=== PATIENT | female | born 1930 | race Caucasian/White ===

== ENCOUNTER 2018-04-10 11:39 | Observation (INO) | payer MEDICARE, OTHER ==
[~2018-04-10] VITALS: Ht 167.6 cm; Wt 99.0 kg
[2018-04-10] MEDS ORDERED: ATENOLOL50 MG PO (12:17)
[2018-04-10] MEDS ORDERED: DONEPEZIL10 MG PO (12:18)
[2018-04-10] MEDS ORDERED: FUROSEMIDE20 MG PO (12:19)
[2018-04-10] MEDS ORDERED: KLOR-CON 1010 MEQ PO (12:19)
[2018-04-10] MEDS ORDERED: LEVOTHYROXIN125 MC1 PO (12:20)
[2018-04-10] MEDS ORDERED: LORATADINE10 M4 PO (12:21)
[2018-04-10] MEDS ORDERED: CRESTOR5 MG PO (12:21)
[2018-04-10] MEDS ORDERED: LORAZEPAM0.5 MG PO (12:22)
[2018-04-10] MEDS ORDERED: PROAIR HFA IN (12:23)
[2018-04-10] MEDS ORDERED: FLONASE AL50 MCG/ACT NAB (12:23)
[2018-04-10] MEDS ORDERED: ALBUTEROL SUL0.083 % IN (12:24)
[2018-04-10] MEDS ORDERED: DULERA1 AER IN (12:25)
[2018-04-10] MEDS ORDERED: ADLT ASA LOW81 MG PO (12:25)
[2018-04-10] MEDS ORDERED: HYDROXYZ HCL10 MG PO (12:26)
[2018-04-10] MEDS ORDERED: TYLENOL325 MG PO (12:27)
[2018-04-10] MEDS ORDERED: MULTI VIT PO (12:28)
[2018-04-10 15:45] VITALS: BP 168/71
[2018-04-10 16:50] LABS: TSH, 3RD GENERATION 3.13 uIU/mL (0.47 - 4.68)
[2018-04-10 20:00] VITALS: BP 138/64
[2018-04-11 04:24] VITALS: BP 116/62
[2018-04-11 05:06] LABS: HEMATOCRIT 34.4 % (37.0-47.0); HEMOGLOBIN 10.9 g/dl (12.0-16.0); IMMATURE GRANULOCYTES 0.3 % (0.0-5.0); MEAN CELL VOLUME 97.7 fL CALC (80.0-100.0); MEAN CORPUSCULAR HGB CONC 31.7 g/L CALC (32.0-36.0); NEUT# 4.31 thou/uL (2.00-7.15); RED BLOOD COUNT 3.52 mill/uL (4.20-5.60); RED CELL DISTRI WIDTH 14.2 % (11.5-15.5)
[2018-04-11 05:28] LABS: ALBUMIN 3.4 g/dL (3.2-5.0); BILIRUBIN, TOTAL 0.4 mg/dL (0.0-1.4); CREATININE 1.1 mg/dL (0.5-1.0); POTASSIUM 4.7 mmol/l (3.5-5.1)
[2018-04-11 15:48] VITALS: BP 128/62
[2018-04-11] MEDS ORDERED: LORTAB 5/3255 MG PO (18:06)
== END 2018-04-11 18:44 ==
LOC: ED 11:39 → ED-I 14:35 → MS2 15:14 → ED 15:14 → MS2 15:14
PROVIDERS: ADMIT Internal Medicine Geriatric Medicine; ATTEND Internal Medicine Geriatric Medicine
DX: D49.2 Neoplasm of unspecified behavior of bone, soft tissue, and skin (principal); I11.0 Hypertensive heart disease with heart failure; I50.9 Heart failure, unspecified; J44.9 Chronic obstructive pulmonary disease, unspecified; I25.10 Atherosclerotic heart disease of native coronary artery without angina pectoris; K21.9 Gastro-esophageal reflux disease without esophagitis; Z99.81 Dependence on supplemental oxygen; F41.1 Generalized anxiety disorder; F32.9 Major depressive disorder, single episode, unspecified; E03.9 Hypothyroidism, unspecified
CPT/HCPCS: A9503; Q9967

== ENCOUNTER 2018-04-15 22:31 | Emergency (ER) | payer MEDICARE, OTHER ==
[~2018-04-15] VITALS: Ht 167.6 cm; Wt 85.0 kg
[~2018-04-15 22:31] MED LIST: ADLT ASA LOW81 MG PO; ALBUTEROL SUL0.083 % IN; ATENOLOL50 MG PO; CRESTOR5 MG PO; DONEPEZIL10 MG PO; DULERA1 AER IN; FLONASE AL50 MCG/ACT NAB; FUROSEMIDE20 MG PO; HYDROXYZ HCL10 MG PO; KLOR-CON 1010 MEQ PO; LEVOTHYROXIN125 MC1 PO; LORATADINE10 M4 PO; LORAZEPAM0.5 MG PO; LORTAB 5/3255 MG PO; MULTI VIT PO; PROAIR HFA IN; TYLENOL325 MG PO
[2018-04-15 23:15] VITALS: BP 142/64
== END 2018-04-15 23:15 | disposition home or self-care (01) ==
LOC: ED 22:31
DX: M25.551 Pain in right hip (principal); M79.10 Myalgia, unspecified site; M62.830 Muscle spasm of back

== ENCOUNTER 2018-05-02 09:12 | Emergency (ER) | payer MEDICARE, OTHER ==
[~2018-05-02] VITALS: Ht 167.6 cm; Wt 85.0 kg
[2018-05-02 11:10] VITALS: BP 133/63
== END 2018-05-02 11:20 | disposition home or self-care (01) ==
LOC: ED 09:12
DX: M25.551 Pain in right hip (principal); M54.5 Low back pain; S70.01XA Contusion of right hip, initial encounter; W18.30XA Fall on same level, unspecified, initial encounter; Y92.009 Unspecified place in unspecified non-institutional (private) residence as the place of occurrence of the external cause

== ENCOUNTER 2018-05-07 13:21 | Inpatient (IN) | payer MEDICARE, OTHER ==
[~2018-05-07] VITALS: Ht 152.4 cm; Wt 86.0 kg
[2018-05-07 14:18] VITALS: BP 134/68
[2018-05-07] MEDS ORDERED: DURAGESIC25 MCG/H1 TD (14:29)
[2018-05-07 14:50] LABS: HEMATOCRIT 35.5 % (37.0-47.0); HEMOGLOBIN 11.2 g/dl (12.0-16.0); IMMATURE GRANULOCYTES 0.5 % (0.0-5.0); MEAN CELL VOLUME 95.9 fL CALC (80.0-100.0); MEAN CORPUSCULAR HGB 30.3 pG CALC (26.0-32.0); MEAN CORPUSCULAR HGB CONC 31.5 g/L CALC (32.0-36.0); NEUT# 6.54 thou/uL (2.00-7.15); RED BLOOD COUNT 3.7 mill/uL (4.20-5.60); RED CELL DISTRI WIDTH 13.5 % (11.5-15.5)
[2018-05-07 15:02] LABS: CREATININE 1.4 mg/dL (0.5-1.0); POTASSIUM 4.2 mmol/l (3.5-5.1)
[2018-05-07 16:14] VITALS: BP 129/57
[2018-05-07 19:00] VITALS: BP 110/50
[2018-05-08 00:05] VITALS: BP 120/62
[2018-05-08 04:15] VITALS: BP 115/58
[2018-05-08 05:36] LABS: HEMATOCRIT 33.5 % (37.0-47.0); HEMOGLOBIN 10.7 g/dl (12.0-16.0); IMMATURE GRANULOCYTES 0.3 % (0.0-5.0); MEAN CELL VOLUME 95.7 fL CALC (80.0-100.0); MEAN CORPUSCULAR HGB 30.6 pG CALC (26.0-32.0); MEAN CORPUSCULAR HGB CONC 31.9 g/L CALC (32.0-36.0); NEUT# 5.73 thou/uL (2.00-7.15); RED BLOOD COUNT 3.5 mill/uL (4.20-5.60); RED CELL DISTRI WIDTH 13.3 % (11.5-15.5)
[2018-05-08 06:32] LABS: URINE BILIRUBIN - DIPSTICK NEGATIVE (NEGATIVE); URINE BLOOD DIPSTICK NEGATIVE (NEGATIVE); URINE COLOR YELLOW; URINE GLUCOSE - DIPSTICK NEGATIVE (NEGATIVE); URINE KETONE NEGATIVE (NEGATIVE); URINE LEUK ESTERASE NEGATIVE (Negative); URINE NITRITE - DIPSTICK NEGATIVE (Negative); URINE PH 6.5 (4.5-8.0); URINE PROTEIN - DIPSTICK NEGATIVE (NEG-TRACE); URINE SPECIFIC GRAVITY 1.015; URINE UROBILINOGEN - DIPSTICK 0.2 E.U./dL (0.2)
[2018-05-08 06:34] LABS: URINE CLARITY CLEAR
[2018-05-08 06:41] LABS: ALBUMIN 3.6 g/dL (3.2-5.0); BILIRUBIN, TOTAL 0.3 mg/dL (0.0-1.4); CREATININE 1.2 mg/dL (0.5-1.0); POTASSIUM 4.7 mmol/l (3.5-5.1); TOTAL PROTEIN 6.2 g/dL (6.3-8.2)
[2018-05-08 08:38] VITALS: BP 138/61
[2018-05-08 15:46] VITALS: BP 129/57
[2018-05-08 19:00] VITALS: BP 136/71
[2018-05-09 04:00] VITALS: BP 156/73
[2018-05-09 05:59] LABS: HEMATOCRIT 35.2 % (37.0-47.0); HEMOGLOBIN 11.4 g/dl (12.0-16.0); IMMATURE GRANULOCYTES 0.6 % (0.0-5.0); MEAN CELL VOLUME 94.9 fL CALC (80.0-100.0); MEAN CORPUSCULAR HGB 30.7 pG CALC (26.0-32.0); MEAN CORPUSCULAR HGB CONC 32.4 g/L CALC (32.0-36.0); NEUT# 11.1 thou/uL (2.00-7.15); RED BLOOD COUNT 3.71 mill/uL (4.20-5.60); RED CELL DISTRI WIDTH 13.2 % (11.5-15.5)
[2018-05-09 06:08] LABS: ALBUMIN 3.6 g/dL (3.2-5.0); ALKALINE PHOSPHATASE 60 u/l (38-126); ANION GAP 16 (6-22 (CALC)); BILIRUBIN, TOTAL 0.3 mg/dL (0.0-1.4); BUN 26 mg/dL (8-23); BUN/CREATININE RATIO 26 (12-20 (CALC)); CARBON DIOXIDE 25 mmol/l (22-30); CHLORIDE 100 mmol/l (95-108); GFR 52 ML/MIN (>=60 (CALC)); GFR FOR AFR.AMER. > 60 ML/MIN (>=60 (CALC)); POTASSIUM 4.7 mmol/l (3.5-5.1); SGOT/AST 22 u/l (9-36); SODIUM 136 mmol/l (137-146); TOTAL PROTEIN 6.3 g/dL (6.3-8.2)
[2018-05-09 07:46] VITALS: BP 127/73
[2018-05-09 15:27] VITALS: BP 137/90
[2018-05-09 15:28] VITALS: BP 132/67
[2018-05-09 18:51] VITALS: BP 134/71
[2018-05-10 04:23] VITALS: BP 134/67
[2018-05-10 05:17] LABS: HEMATOCRIT 33.1 % (37.0-47.0); HEMOGLOBIN 10.7 g/dl (12.0-16.0); IMMATURE GRANULOCYTES 0.8 % (0.0-5.0); MEAN CORPUSCULAR HGB 30.1 pG CALC (26.0-32.0); MEAN CORPUSCULAR HGB CONC 32.3 g/L CALC (32.0-36.0); NEUT# 10.05 thou/uL (2.00-7.15); RED BLOOD COUNT 3.56 mill/uL (4.20-5.60); RED CELL DISTRI WIDTH 13.3 % (11.5-15.5)
[2018-05-10 05:41] LABS: ALBUMIN 3.2 g/dL (3.2-5.0); ALKALINE PHOSPHATASE 69 u/l (38-126); ANION GAP 14 (6-22 (CALC)); BILIRUBIN, TOTAL 0.2 mg/dL (0.0-1.4); BUN 30 mg/dL (8-23); BUN/CREATININE RATIO 33 (12-20 (CALC)); CARBON DIOXIDE 25 mmol/l (22-30); CHLORIDE 102 mmol/l (95-108); CREATININE 0.9 mg/dL (0.5-1.0); GFR 59 ML/MIN (>=60 (CALC)); GFR FOR AFR.AMER. > 60 ML/MIN (>=60 (CALC)); POTASSIUM 4.1 mmol/l (3.5-5.1); SGOT/AST 17 u/l (9-36); SODIUM 137 mmol/l (137-146); TOTAL PROTEIN 5.7 g/dL (6.3-8.2)
[2018-05-10 07:58] VITALS: BP 150/88
[2018-05-10 16:00] VITALS: BP 159/72
[2018-05-10 19:37] VITALS: BP 153/81
[2018-05-11 06:06] VITALS: BP 141/79
[2018-05-11 07:57] VITALS: BP 149/70
[2018-05-11 09:45] LABS: HEMATOCRIT 35.3 % (37.0-47.0); HEMOGLOBIN 11.3 g/dl (12.0-16.0); IMMATURE GRANULOCYTES 0.9 % (0.0-5.0); MEAN CELL VOLUME 95.4 fL CALC (80.0-100.0); MEAN CORPUSCULAR HGB 30.5 pG CALC (26.0-32.0); NEUT# 12.15 thou/uL (2.00-7.15); RED BLOOD COUNT 3.7 mill/uL (4.20-5.60); RED CELL DISTRI WIDTH 13.7 % (11.5-15.5)
[2018-05-11 09:51] LABS: ANION GAP 13 (6-22 (CALC)); BUN 26 mg/dL (8-23); BUN/CREATININE RATIO 30 (12-20 (CALC)); CARBON DIOXIDE 27 mmol/l (22-30); CHLORIDE 101 mmol/l (95-108); CREATININE 0.9 mg/dL (0.5-1.0); GFR 59 ML/MIN (>=60 (CALC)); GFR FOR AFR.AMER. > 60 ML/MIN (>=60 (CALC)); POTASSIUM 3.4 mmol/l (3.5-5.1); SODIUM 138 mmol/l (137-146)
[2018-05-11 12:00] VITALS: BP 150/78
[2018-05-11 16:00] VITALS: BP 158/87
[2018-05-11 19:39] VITALS: BP 132/63
[2018-05-12 04:00] VITALS: BP 127/70
[2018-05-12 05:22] LABS: ANION GAP 12 (6-22 (CALC)); BUN 23 mg/dL (8-23); BUN/CREATININE RATIO 23 (12-20 (CALC)); CARBON DIOXIDE 27 mmol/l (22-30); CHLORIDE 102 mmol/l (95-108); GFR 52 ML/MIN (>=60 (CALC)); GFR FOR AFR.AMER. > 60 ML/MIN (>=60 (CALC)); POTASSIUM 3.8 mmol/l (3.5-5.1); SODIUM 137 mmol/l (137-146)
[2018-05-12 08:09] VITALS: BP 118/66
[2018-05-12 15:44] VITALS: BP 122/74
[2018-05-12 19:00] VITALS: BP 150/88
[2018-05-13 04:10] VITALS: BP 113/66
[2018-05-13 05:21] LABS: HEMATOCRIT 36.6 % (37.0-47.0); HEMOGLOBIN 11.9 g/dl (12.0-16.0); IMMATURE GRANULOCYTES 0.5 % (0.0-5.0); MEAN CELL VOLUME 93.1 fL CALC (80.0-100.0); MEAN CORPUSCULAR HGB 30.3 pG CALC (26.0-32.0); MEAN CORPUSCULAR HGB CONC 32.5 g/L CALC (32.0-36.0); NEUT# 8.91 thou/uL (2.00-7.15); RED BLOOD COUNT 3.93 mill/uL (4.20-5.60); RED CELL DISTRI WIDTH 13.5 % (11.5-15.5)
[2018-05-13 05:32] LABS: ALBUMIN 3.6 g/dL (3.2-5.0); ALKALINE PHOSPHATASE 64 u/l (38-126); ANION GAP 14 (6-22 (CALC)); BILIRUBIN, TOTAL 0.4 mg/dL (0.0-1.4); BUN 18 mg/dL (8-23); BUN/CREATININE RATIO 20 (12-20 (CALC)); CARBON DIOXIDE 31 mmol/l (22-30); CHLORIDE 94 mmol/l (95-108); CREATININE 0.9 mg/dL (0.5-1.0); GFR 59 ML/MIN (>=60 (CALC)); GFR FOR AFR.AMER. > 60 ML/MIN (>=60 (CALC)); POTASSIUM 3.7 mmol/l (3.5-5.1); SGOT/AST 17 u/l (9-36); SODIUM 135 mmol/l (137-146); TOTAL PROTEIN 6.3 g/dL (6.3-8.2)
[2018-05-13] MEDS ORDERED: DUONEB EX (13:31)
[2018-05-13 15:25] VITALS: BP 114/72
== END 2018-05-13 16:48 | DRG 842 ==
LOC: MS2 13:21
PROVIDERS: ADMIT Internal Medicine Geriatric Medicine; ATTEND Internal Medicine Geriatric Medicine
PROC: 0T9B70Z Drainage of Bladder with Drainage Device, Via Natural or Artificial Opening (ICD-10-PCS; principal; 2018-05-08)
DX: C85.99 Non-Hodgkin lymphoma, unspecified, extranodal and solid organ sites (principal); J44.9 Chronic obstructive pulmonary disease, unspecified; Z99.81 Dependence on supplemental oxygen; I25.10 Atherosclerotic heart disease of native coronary artery without angina pectoris; G47.30 Sleep apnea, unspecified; I10 Essential (primary) hypertension; M19.90 Unspecified osteoarthritis, unspecified site; F41.1 Generalized anxiety disorder; F32.9 Major depressive disorder, single episode, unspecified; K21.9 Gastro-esophageal reflux disease without esophagitis; E03.9 Hypothyroidism, unspecified; E83.52 Hypercalcemia; H91.90 Unspecified hearing loss, unspecified ear; G89.3 Neoplasm related pain (acute) (chronic); R29.6 Repeated falls; Z95.0 Presence of cardiac pacemaker; Z63.8 Other specified problems related to primary support group
CPT/HCPCS: G0378; G0379; S0164

== ENCOUNTER 2018-07-08 12:48 | Observation (INO) | payer MEDICARE, OTHER ==
[~2018-07-08] VITALS: Ht 152.4 cm; Wt 80.2 kg
[~2018-07-08 12:48] MED LIST changes: +DUONEB EX; +DURAGESIC25 MCG/H1 TD
--- NOTE | 2018-07-08 13:20 | NUR ---
PT ARRIVED FROM &R AT 1320 VIA . ASSISTED TO BED CLEANED BY EDUCATION AND DEVELOPMENT MANAGER'S DUE TO BEING SOILED.
[2018-07-08 13:23] VITALS: BP 121/50
--- NOTE | 2018-07-08 15:00 | NUR ---
ASSESSMENT IS COMPLETD: FAMILY IN THE ROOM. IV SITE WAS STARTED BY ESA SCHNEIDER. HR IS REG,PULSES ARE STRONG X4, ABD IS SOFT WITH ACTIVE BS. BREATH SOUNDS ARE CLEAR BIALTERALLY. CONTINUE TO OBSERVE AND MONITOR.
[2018-07-08 15:56] VITALS: BP 136/59
[2018-07-08 16:41] LABS: IMMATURE GRANULOCYTES 0.7 % (0.0-5.0); MEAN CELL VOLUME 95.9 fL CALC (80.0-100.0); MEAN CORPUSCULAR HGB CONC 30.2 g/L CALC (32.0-36.0); NEUT# 12.23 thou/uL (2.00-7.15); RED BLOOD COUNT 2.45 mill/uL (4.20-5.60); RED CELL DISTRI WIDTH 14.6 % (11.5-15.5)
[2018-07-08 16:46] LABS: CREATININE 1.4 mg/dL (0.5-1.0); POTASSIUM 4.2 mmol/l (3.5-5.1)
--- NOTE | 2018-07-08 16:59 | NUR ---
INFORMED DR. MARISCAL RE: VOMITING BLACK, AND BUN IS 88.
[2018-07-08 17:06] LABS: HEMATOCRIT 23.5 % (37.0-47.0); HEMOGLOBIN 7.1 g/dl (12.0-16.0)
--- NOTE | 2018-07-08 17:30 | NUR ---
IN TO START THE NGT DUE TO VOMITING BLACK FLUID. INFORMED FAMILY. ALSO EXPLAINED TO FAMILY RE: NEED FOR BLOOD TRANSFUSION. LAB CAME TO DRAW .
--- NOTE | 2018-07-08 18:15 | NUR ---
INFORMED STAFF THAT TELE MONITOR CAN BE DISCONTNUED,
--- NOTE | 2018-07-08 18:40 | NUR ---
NGT REPLACED AND WAS CONFIRMED BY XRAY. LARGE AMOUNT OF BLACK FLUID EXPELLED. PT IS RELAXING AT THIS TIME.
[2018-07-08 19:11] VITALS: BP 112/45
--- NOTE | 2018-07-08 19:30 | NUR ---
PT SIGNED CONSENT FOR BLOOD. FAMILY CALLED AND EXPRESSED THAT ONLY THIS TIME FOR THE BLOOD TRANSFUSION. WOULD LIKE TO BE CALLED IF ANYTHING HAPPENS DURING THE NIGHT NO MATTER WHAT TIME. IV SITE IS FREE FROM REDNESS OR EDMEA. CONTINUE TO OBSERVE AND MONTIOR.
[2018-07-08 19:54] LABS: C. DIFFICILE TOXIN A&B NEGATIVE (NEGATIVE)
[2018-07-08 21:50] VITALS: BP 110/50
--- NOTE | 2018-07-08 22:15 | NUR ---
VERBAL CONSENT OBTAINED FROM NEXT OF KIN AND TRANSFUSION STARTED AT THIS TIME. PT APPEARS STABLE. WILL CONTINUE TO MONITOR. PT WAS CLEANED OF INCONTINENT BLACK LOOSE STOOL AND PROVIDED LAVERN-CARE. PT KEPT ASKING US TO STOP. PT IS IN BED W/CDI BEDDING AND NEW GOWN AT THIS TIME. NGTUBE AT INTERMITTENT SUCTION ON LOW.
[2018-07-08 22:33] VITALS: BP 120/60
[2018-07-08 23:18] VITALS: BP 122/60
[2018-07-09] VITALS (10 sets, daily range): BP systolic 98–131; BP diastolic 44–74
--- NOTE | 2018-07-09 01:59 | NUR ---
2ND UNIT OF BLOOD STARTED AT THIS TIME. PT TOLERATED FIRST UNIT WELL, BP 125/65, HR 90, RESP 16, TEMP 98.1 PT IS SLEEPING, NO S/O DISTRESS AT THIS TIME. WILL CONTINUE TO MONITOR.
--- NOTE | 2018-07-09 05:38 | NUR ---
2ND UNIT OF BLOOD COMPLETED AT THIS TIME. BP 108/52, TEMP97.5, RESP 18. NO S/O DISTRESS NOTED, PT SLEEPING. NG TUBE TO L NARE ON LOW INTERMITTENT SUCTION W/BLACK OUTPUT.
--- NOTE | 2018-07-09 06:23 | NUR ---
PT MEDICATED ORDERS PROVIDE. NO S/O DISTRESS NOTED. CALL LIGHT AT SIDE.
--- NOTE | 2018-07-09 07:10 | NUR ---
REPORT RECEIVED FROM WYATT CRUM;PT APPEARS TO BE SLEEPING IN SEMI FOWLERS POSITION;RESPIRATIONS EVEN AND UNLABORED ON RA;NO S/S OF DISTRESS NOTED;NG TUBE APPEARS PATENT DRAINING BLACK FLUID TO LIS;IV FLUIDS INFUSING TO LAC WITH EASE;NPO DIET REINFORCED;FALL PRECAUTIONS IN PLACE WITH BED IN THE LOWEST POSITION WITH CALL LIGHT IN REACH;WILL CONTINUE TO MONITOR
[2018-07-09 07:45] LABS: HEMATOCRIT 26.4 % (37.0-47.0); HEMOGLOBIN 8.5 g/dl (12.0-16.0); IMMATURE GRANULOCYTES 0.4 % (0.0-5.0); MEAN CORPUSCULAR HGB 28.4 pG CALC (26.0-32.0); MEAN CORPUSCULAR HGB CONC 32.2 g/L CALC (32.0-36.0); NEUT# 15.88 thou/uL (2.00-7.15); RED BLOOD COUNT 2.99 mill/uL (4.20-5.60); RED CELL DISTRI WIDTH 16.7 % (11.5-15.5)
[2018-07-09 07:51] LABS: MEAN CELL VOLUME 88.3 fL CALC (80.0-100.0)
--- NOTE | 2018-07-09 08:01 | NUR ---
AT BEDSIDE DISCUSSING POC.
[2018-07-09 08:02] LABS: BILIRUBIN, TOTAL 0.8 mg/dL (0.0-1.4); CREATININE 1.4 mg/dL (0.5-1.0); POTASSIUM 3.7 mmol/l (3.5-5.1)
--- NOTE | 2018-07-09 08:13 | NUR ---
DOUBLE CHECKED WITH ABOUT TRANSFUSING 3 UNITS OF PRBC'S FOR A H&H OF 8.5;RBVO TO TRANSFUSE 3 UNITS OF PRBCS.
[2018-07-09 08:17] LABS: ALBUMIN 2.6 g/dL (3.2-5.0); TOTAL PROTEIN 4.8 g/dL (6.3-8.2)
--- NOTE | 2018-07-09 08:50 | NUR ---
PT RESTING IN SEMI FOWLERS POSITION, ALERT TO SELF ONLY BUT DROWSY;FAMILY MEMBERS AT BEDSIDE;VS OBTAINED AND ASSESSMENT COMPLETED;BP 131/44 HR 62 O2 97% ON RA;RESPIRATIONS SHALLOW ON RA, DIMINISHED LUNG SOUNDS NOTED;ABDOMEN DISTENDED/SOFT ON PALPATION AND ACTIVE IN ALL 4 QUADRANTS;WEAK PEDAL PULSES;SKIN INTACT;#22G TO LAC INFUSING D5 1/2 NS @ 100ML/HR,SITE APPEARS HEALTHY;#22G TO LEFT HAND FLUSHED AND PATENT;NG TUBE PATENT DRAINING BLACK DRAINAGE TO LIS,PT TOLERATING WELL;NPO DIET REINFORCED;PT DENIES ANY CURRENT PAIN AT THIS TIME,FENTANYL PATCH NOTED TO RIGHT UPPER SHOULDER;PAIN SCALE AND REPORTING EDUCATED;PT AND FAMILY DENY ANY ADDITIONAL NEEDS AT THIS TIME AND ARE ENCOURAGED TO CALL FOR ASSISTANCE IF NEEDED;FALL PRECAUTIONS IN PLACE WITH CALL LIGHT IN REACH;WILL CONTINUE TO MONITOR
--- NOTE | 2018-07-09 09:06 | NUR ---
INFORMED THAT PT FAMILY AND POA DO NOT WISH FOR PATIENT TO RECEIVE ANY ADDITIONAL BLOOD AT THIS TIME.NO NEW ORDERS RECEIVED;WILL CONTINUE TO MONITOR
[2018-07-09] MEDS ORDERED: FENTANYL50 MCG/HR TD (10:52)
--- NOTE | 2018-07-09 11:55 | NUR ---
PT SLEEPING IN SEMI FOWLERS POSITION WITH FAMILY AT BEDSIDE;RESPIRATIONS SHALLOW ON RA;NO S/S OF DISTRESS NOTED;NG TUBE REMAINS PATENT RUNNING AT LIS, COFFEE GROUND DRAINAGE CONTINUES;IV FLUIDS INFUSING TO LAC WITH EASE;FAMILY DENIES ANY CURRENT NEEDS;ENCOURAGED TO CALL FOR ASSISTANCE IF NEEDED;CALL LIGHT IN REACH;WILL CONTINUE TO MONITOR
--- NOTE | 2018-07-09 16:10 | NUR ---
PT RESTING IN SEMI FOWLERS POSITION WITH FAMILY AT BEDSIDE;RESPIRATIONS REMAIN SHALLOW ON RA;PT DENIES ANY PAIN WHEN ASKED, ENCOURAGED TO EXPRESS NEEDS AND CONCERNS;IV FLUIDS CONTINUE TO INFUSE TO LAC WITH EASE;NG TUBE PATENT RUNNING TO LIS;ALL SAFETY PRECAUTIONS REINFORCED;WILL CONTINUE TO MONITOR
--- NOTE | 2018-07-09 17:40 | NUR ---
HERNANDEZ Cindy Montalvobree [phone] called per this medical writer; explained to her that it is her choice if she wants the pt to received the additional units of PRBC as ordered; She stated that she discussed with her [id number] and and that they are all in agreement to allow for the transfusion to take place tonigh and nothing more after this. Cindy states,"My mother is ate up with cancer I do not want to prolong her life or make her suffer any more than necessary." Call ended at this time, primary nurse CARLOS A Deshpande notified.
--- NOTE | 2018-07-09 19:10 | NUR ---
REPORT RECEIVED FROM CARLOS A CORNEJO. PT SLEEPING IN BED. IV #22 LAC INFUSING D5 1/2 NS @100 ML/HR, APPEARS HEALTHY. IV #24 RH INFUSING PROTONIX @ 10 ML/HR, APPEARS HEALTHY. SAFETY PRECAUTIONS IN PLACE. WILL CONTINUE TO MONITOR.
[2018-07-10] VITALS (11 sets, daily range): BP systolic 83–112; BP diastolic 39–65
--- NOTE | 2018-07-10 00:56 | NUR ---
PT CONFUSED REPEATEDLY ASKING FOR A DRINK, EXPLAINED TO PT SHE IS NPO, USED MOUTH SWABS TO MOISTEN MOUTH. BLOOD TRANSFUSION RUNNING, 15 MINUTE VS OBTAINED, PT TOLERATING WELL.
--- NOTE | 2018-07-10 04:59 | NUR ---
BLOOD TRANSFUSING 15 MINUTE VS OBTAINED, PT TOLERATING WELL, NO SIGNS OF A REACTION. SAFETY PRECAUTIONS IN PLACE. WILL CONTINUE TO MONITOR.
--- NOTE | 2018-07-10 07:15 | NUR ---
REPORT FROM TAYLOR SCHNEIDER. PT SITTING UP IN BED. ALERT AND ORIENTED TO SELF. NG TUBE IN PLACE AT LOW INTERMITTENT SUCTION. PT TOLERATING WELL. PT DENIES ANY PAIN AT THIS TIME. IV SITES APPEAR HEALTHY. CALL LIGHT WITHIN REACH. WILL CONTINUE TO MONITOR.
--- NOTE | 2018-07-10 08:01 | NUR ---
DR. MARISCAL IN ROOM WITH PT AT THIS TIME.
--- NOTE | 2018-07-10 08:08 | NUR ---
NG TUBE CANISTER EMPTIED PER DR MARISCAL TUBE CLAMPED AND WILL REACCESS OUTPUT IN 30-45 MINS. PT TOLERATING WELL. CALL LIGHT WITHIN REACH.
[2018-07-10 09:17] LABS: IMMATURE GRANULOCYTES 1.2 % (0.0-5.0); MEAN CELL VOLUME 90.3 fL CALC (80.0-100.0); MEAN CORPUSCULAR HGB 29.6 pG CALC (26.0-32.0); MEAN CORPUSCULAR HGB CONC 32.7 g/L CALC (32.0-36.0); NEUT# 11.54 thou/uL (2.00-7.15); RED BLOOD COUNT 3.62 mill/uL (4.20-5.60); RED CELL DISTRI WIDTH 16.9 % (11.5-15.5)
[2018-07-10 09:18] LABS: HEMATOCRIT 32.7 % (37.0-47.0); HEMOGLOBIN 10.7 g/dl (12.0-16.0)
[2018-07-10 09:27] LABS: CREATININE 1.1 mg/dL (0.5-1.0); POTASSIUM 3.5 mmol/l (3.5-5.1)
--- NOTE | 2018-07-10 09:49 | NUR ---
PT SITTING UP IN BED, RESP EVEN AND UNLABORED ON 02 @3L NC; NG TUBE IN TACT DRAINING LIGHT GREEN DARINAGE IN CANISTER; #24 RH PANTOPRAZOLE INFUSING @10CC/HR, OLD BLOOD NOTED TO SITE BUT NO REDNESS OR EDEMA; #22 LAC D5 1/2 NS @100CC/HR; SITE APPEARS HEALTHY; OLD SCAB NOTED TO LLE; VOICE NO PIAN; FAMILY AT BED SIDE. CALL CUELLAR IN REACH. WILL CONTINUE TO MONITOR
--- NOTE | 2018-07-10 11:17 | NUR ---
NG TUBE CLAMBED AND REASSESS OUTPUT IN AN HR PER DR MARISCAL; PT TOLERATED WELL.
--- NOTE | 2018-07-10 11:55 | NUR ---
ENTERED ROOM, PT VERY BUSY WITH HER HANDS PULLING ON THINGS, NG TUBE FOUND REMOVED FROM NOSTRILS, LAYING IN BED; DR MARISCAL NOTIFIED, ORDER CLEAR LIQUID DIET; GAVE PT WASH CLOTHS TO FOLD, KEEP HER BUSY. NO S/S OF DISTRESS NOTED;
--- NOTE | 2018-07-10 15:09 | NUR ---
DR MARISCAL CALLED SAID TO STOP PROTONIX WHEN BAG IS FINISHED THEN START PO
--- NOTE | 2018-07-10 16:07 | NUR ---
IV PROTONIX FINISHED; PT PULLED ON IV #24 RH; REMOVED CATH INTACT; SITE APPEARS HEALTHY; PT WATCHING TV; RESP EVEN AND UNLABORED; BED ALARM IN ACTIVE; NO S/S OF DISTRESS NOTED; WILL CONTINUE TO MONITOR.
--- NOTE | 2018-07-10 16:43 | NUR ---
FAMILY MEMBERS AT BED SIDE WAITING TO SEE DR MARISCAL;
--- NOTE | 2018-07-10 18:22 | NUR ---
ENTERED ROOM IV BEEPING, FOUND IV PULLED OUT AND LAYING ON PT'S STOMACH; PT STATED SHE DID NOT DO IT; CATH INTACT; SITE APPEARS HEALTHY
--- NOTE | 2018-07-10 19:15 | NUR ---
NEW IV START #22 RW; 1ST ATTEMPT; PT TOLERATED WELL.
--- NOTE | 2018-07-10 19:40 | NUR ---
REPORT RECEIVED FROM CARLOS A ESTRADA. PT RESTING IN BED. CONFUSED AT TIMES. ASSESSMENT COMPLETED. PT DENIES ANY PAIN OR DISCOMFORT. IV #22 RFA, INFUSING D 5 1/2 NS @ 100 ML/HR, APPEARS HEALTHY. RESPIRATIONS EVEN AND UNLABORED ON O2 VIA NC @ 2L. PT PICKS AND HAS SCABS THROUGH OUT BODY. CALL LIGHT WITHIN REACH. SAFETY PRECAUTIONS IN PLACE. WILL CONTINUE TO MONITOR.
--- NOTE | 2018-07-11 00:03 | NUR ---
PT SLEEPING IN BED WITH THE TV ON. RESPIRATIONS EVEN AND UNLABORED ON O2 VIA NC @ 2L. IV # 22 RFA INFUSING D 5 1/2 NS @ 100 ML/HR. SAFETY PRECAUTIONS IN PLACE. WILL CONTINUE TO MONITOR.
--- NOTE | 2018-07-11 04:27 | NUR ---
PT SITTING UP IN BED WATCHING TV. PROVIDED PT WITH ICE WATER PER PT REQUEST. PT DENIES ANY FURTHER NEEDS. SAFETY PRECAUTIONS IN PLACE. WILL CONTINUE TO MONITOR.
[2018-07-11 04:42] VITALS: BP 101/54
[2018-07-11 05:42] LABS: HEMATOCRIT 31.1 % (37.0-47.0); HEMOGLOBIN 10.1 g/dl (12.0-16.0); IMMATURE GRANULOCYTES 1.6 % (0.0-5.0); MEAN CELL VOLUME 90.9 fL CALC (80.0-100.0); MEAN CORPUSCULAR HGB 29.5 pG CALC (26.0-32.0); MEAN CORPUSCULAR HGB CONC 32.5 g/L CALC (32.0-36.0); NEUT# 10.15 thou/uL (2.00-7.15); RED BLOOD COUNT 3.42 mill/uL (4.20-5.60); RED CELL DISTRI WIDTH 16.7 % (11.5-15.5)
[2018-07-11 06:00] LABS: ALBUMIN 2.3 g/dL (3.2-5.0); BILIRUBIN, TOTAL 0.2 mg/dL (0.0-1.4); CREATININE 1.1 mg/dL (0.5-1.0); TOTAL PROTEIN 4.4 g/dL (6.3-8.2)
--- NOTE | 2018-07-11 07:48 | NUR ---
PT TAKEN TO RADIOLOGY VIA STRETCHER, ACCOMPANIED BY ASSISTANT FINANCE DIRECTOR. CONTINUE TO MONITOR.
[2018-07-11 08:30] VITALS: BP 106/47
--- NOTE | 2018-07-11 08:30 | NUR ---
PT RESTING IN BED, RETURNED FROM RADIOLOGY. PT ALERT AND ORIENTED TO SELF, ABLE TO OBEY COMMANDS. DISCUSSED POC, PT IN AGREEMENT. IVF IN PLACE, VSS, ASSESSMENT COMPLETED. NOTED FENANYL PATCH TO L SHOULDER. PT HAS SMALL SCABBED AREAS TO L ANKLE. CALL LIGHT IN REACH,CONTINUE TO MONITOR.
--- NOTE | 2018-07-11 08:40 | NUR ---
TO SEE PT, DISCUSSED POC, STATES HE WILL INCREASE LUNCH TO FULL LIQUID SINCE BREAKFAST WAS TOLERATED WELL, AND WILL INCREASE AGAIN AT DINNER TO SOFT IF TOLERATED WELL. THEN POSS DC IN AM. PT IN AGREEMENT. DECREASED FLUIDS PER MD ORDERS. CALL LIGHT IN REACH,CONTINUE TO MONITOR.
[2018-07-11 15:13] VITALS: BP 116/52
--- NOTE | 2018-07-11 16:50 | NUR ---
PT SITTING IN RECLINER, NO SIGNS OF DISTRESS NOTED, RESP EVEN AND UNLABORED. CALL LIGHT IN REACH,CONTINUE TO MONITOR.
--- NOTE | 2018-07-11 18:14 | NUR ---
PT ASSISTED BACK IN BED, C/O PAIN MEDICATED WITH DILAUDID. CALL LIGHT IN REACH,CONTINUE TO MONITOR.
[2018-07-11 19:55] VITALS: BP 106/64
--- NOTE | 2018-07-11 20:05 | NUR ---
PT SITTING UP IN BED. PT UPSET AND TEARFUL AT THIS TIME. PT STATES SHE FEELS ALONE AND IS VERY ANXIOUS. PHYSICIAN NON INVASIVE CARDIOLOGIST SPOKE WITH PT AND ENCOURAGE RELAXATION TECHNIQUES AND CALM REASSURANCE WITHOUT EFFECT. PT REQUEST MEDICATION TO HELP HER RELAX. PRN IV ATIVAN ADMINISTERED AT THIS TIME. PT DENIES ANY PAIN OR DISCOMFORT AT THIS TIME. NO RESPIRATORY DISTRESS NOTED. RESPIRATIONS EVEN AND UNLABORED. IV SITE APPEARS HEALTHY. DISCUSSED SAFETY PRECAUTIONS. PT VERBALIZED UNDERSTANDING. CALL LIGHT WITHIN REACH. WILL CONTINUE TO MONITOR.
--- NOTE | 2018-07-12 00:28 | NUR ---
PT RESTING IN BED WITH EYES CLOSED. NO S/S OF PAIN OR RESPIRATORY DISTRESS NOTED. CALL LIGHT WITHIN REACH. WILL CONTINUE TO MONITOR.
[2018-07-12 03:39] LABS: URINE BILIRUBIN - DIPSTICK NEGATIVE (NEGATIVE); URINE BLOOD DIPSTICK SMALL (NEGATIVE); URINE COLOR YELLOW; URINE GLUCOSE - DIPSTICK NEGATIVE (NEGATIVE); URINE KETONE NEGATIVE (NEGATIVE); URINE LEUK ESTERASE LARGE (Negative); URINE NITRITE - DIPSTICK NEGATIVE (Negative); URINE PROTEIN - DIPSTICK NEGATIVE (NEG-TRACE); URINE UROBILINOGEN - DIPSTICK 0.2 E.U./dL (0.2)
[2018-07-12 03:41] LABS: URINE CLARITY TURBID
[2018-07-12 03:43] LABS: URINE BACTERIA FEW hpf; URINE SQUAMOUS EPITHELIAL CELL MODERATE EPI/hpf (0-FEW); URINE WBC 50-100 WBC/hpf (0-5)
--- NOTE | 2018-07-12 04:11 | NUR ---
PT RESTING IN BED WITH EYES CLOSED. RESPIRATIONS EVEN AND UNLABORED. NO S/S OF PAIN OR DISCOMFORT NOTED. CALL LIGHT WITHIN REACH. WILL CONTINUE TO MONITOR.
[2018-07-12 04:25] VITALS: BP 98/54
[2018-07-12 10:31] VITALS: BP 127/50
--- NOTE | 2018-07-12 10:34 | NUR ---
PT SITTING UP IN RECLINER WATCHING TV; RESP EVEN AND UNLABRED; ON ROOM AIR; NO IV SITE NOTED; FENTANYL PATCH NOTED TO L SHOULDER; ALERT TO SELF AND PLACE; AM MEDS ADMINSTERED; VOICE NO CONCERNS; CALL CUELLAR IN REACH; D/C ORDERS IN PLACE;
--- NOTE | 2018-07-12 14:43 | NUR ---
REPORT GIVEN TO [facility]
--- NOTE | 2018-07-12 14:57 | NUR ---
DC INSTRUCTIONS GIVEN TO PT, SIGNATURE OBTAINED; PRECISION JIG GRINDER AT BEDSIDE TO ASSIST PT ON THE BEDSIDE COMMODE; RESP EVEN AND UNLABORED;
--- NOTE | 2018-07-12 15:00 | NUR ---
Discharge instructions given. Patient verbalizes understanding of same. Discharged in stable condition via [facility]. All belongings sent with pt.
== END 2018-07-12 15:12 ==
LOC: MS2 12:48 → EDSTATUS 14:03 → MS2 14:05
PROVIDERS: ADMIT Internal Medicine Geriatric Medicine; ATTEND Internal Medicine Geriatric Medicine
PROC: 30233N1 Transfusion of Nonautologous Red Blood Cells into Peripheral Vein, Percutaneous Approach (ICD-10-PCS; principal; 2018-07-08)
PROC: 30233N1 Transfusion of Nonautologous Red Blood Cells into Peripheral Vein, Percutaneous Approach (ICD-10-PCS; 2018-07-09)
PROC: 30233N1 Transfusion of Nonautologous Red Blood Cells into Peripheral Vein, Percutaneous Approach (ICD-10-PCS; 2018-07-10)
PROC: 30233N1 Transfusion of Nonautologous Red Blood Cells into Peripheral Vein, Percutaneous Approach (ICD-10-PCS; 2018-07-10)
DX: K92.0 Hematemesis (principal); K92.1 Melena; C83.38 Diffuse large B-cell lymphoma, lymph nodes of multiple sites; I25.10 Atherosclerotic heart disease of native coronary artery without angina pectoris; J44.9 Chronic obstructive pulmonary disease, unspecified; K21.9 Gastro-esophageal reflux disease without esophagitis; M19.90 Unspecified osteoarthritis, unspecified site; E03.9 Hypothyroidism, unspecified; F32.9 Major depressive disorder, single episode, unspecified; F41.1 Generalized anxiety disorder; I10 Essential (primary) hypertension; E83.52 Hypercalcemia; R53.81 Other malaise; R26.89 Other abnormalities of gait and mobility; R10.9 Unspecified abdominal pain; Z66 Do not resuscitate; Z99.81 Dependence on supplemental oxygen; Z95.0 Presence of cardiac pacemaker
CPT/HCPCS: G0378; G0379; J2060; P9016; S0164

== ENCOUNTER → 2018-07-19 | Outpatient (REF) | payer OTHER ==
[~2018-07-19] MED LIST changes: +CEFTRIAXONE500 MG IM; +FENTANYL50 MCG/HR TD; +LASIX 40 MG TAB40 MG PO; +LORCET HD 10-321 TAB PO; +RESTORIL15 MG PO; +SYNTHROID175 MCG PO; +VENTOLIN HFA IN
== END | disposition home or self-care (01) | DRG 641 ==
LOC: LABSPEC 23:36
PROVIDERS: ATTEND Internal Medicine Geriatric Medicine
DX: E86.0 Dehydration (principal); B96.20 Unspecified Escherichia coli [E. coli] as the cause of diseases classified elsewhere

== ENCOUNTER 2018-07-27 03:40 | Emergency (ER) | payer MEDICARE, OTHER ==
[~2018-07-27] VITALS: Ht 152.4 cm; Wt 104.5 kg
[~2018-07-27 03:40] MED LIST changes: -CEFTRIAXONE500 MG IM; -LASIX 40 MG TAB40 MG PO; -LORCET HD 10-321 TAB PO; -RESTORIL15 MG PO; -SYNTHROID175 MCG PO; -VENTOLIN HFA IN
[2018-07-27] MEDS ORDERED: CEFTRIAXONE500 MG IM (04:01)
[2018-07-27] MEDS ORDERED: LORCET HD 10-321 TAB PO (04:03)
[2018-07-27] MEDS ORDERED: RESTORIL15 MG PO (04:11)
[2018-07-27] MEDS ORDERED: VENTOLIN HFA IN (04:12)
[2018-07-27 04:59] LABS: HEMATOCRIT 31.2 % (37.0-47.0); HEMOGLOBIN 9.9 g/dl (12.0-16.0); IMMATURE GRANULOCYTES 0.7 % (0.0-5.0); MEAN CELL VOLUME 89.7 fL CALC (80.0-100.0); MEAN CORPUSCULAR HGB 28.4 pG CALC (26.0-32.0); MEAN CORPUSCULAR HGB CONC 31.7 g/L CALC (32.0-36.0); NEUT# 9.63 thou/uL (2.00-7.15); RED BLOOD COUNT 3.48 mill/uL (4.20-5.60); RED CELL DISTRI WIDTH 16.1 % (11.5-15.5)
[2018-07-27 05:05] LABS: BILIRUBIN, TOTAL 0.3 mg/dL (0.0-1.4); MAGNESIUM 2.6 mg/dL (1.6-2.3)
[2018-07-27 05:07] LABS: ALBUMIN 2.8 g/dL (3.2-5.0); CREATININE 2.1 mg/dL (0.5-1.0); POTASSIUM 4.5 mmol/l (3.5-5.1); TOTAL PROTEIN 5.4 g/dL (6.3-8.2)
[2018-07-27 06:21] LABS: TSH, 3RD GENERATION 55.8 uIU/mL (0.47 - 4.68)
[2018-07-27 06:37] LABS: URINE BILIRUBIN - DIPSTICK NEGATIVE (NEGATIVE); URINE BLOOD DIPSTICK MODERATE (NEGATIVE); URINE COLOR YELLOW; URINE GLUCOSE - DIPSTICK NEGATIVE (NEGATIVE); URINE KETONE NEGATIVE (NEGATIVE); URINE NITRITE - DIPSTICK NEGATIVE (Negative); URINE PH 6.5 (4.5-8.0); URINE PROTEIN - DIPSTICK 30 mg/dL (NEG-TRACE); URINE SPECIFIC GRAVITY 1.015; URINE UROBILINOGEN - DIPSTICK 0.2 E.U./dL (0.2)
[2018-07-27 06:40] LABS: URINE LEUK ESTERASE MODERATE (NEGATIVE)
[2018-07-27 06:43] LABS: URINE BACTERIA FEW hpf; URINE SQUAMOUS EPITHELIAL CELL MODERATE EPI/hpf (0-FEW)
[2018-07-27] MEDS ORDERED: SYNTHROID175 MCG PO (07:04)
[2018-07-27] MEDS ORDERED: LASIX 40 MG TAB40 MG PO (07:04)
[2018-07-27 07:28] VITALS: BP 115/69
== END 2018-07-27 07:29 ==
LOC: ED 03:40
PROVIDERS: Family Medicine
DX: E03.9 Hypothyroidism, unspecified (principal); E83.52 Hypercalcemia; C49.5 Malignant neoplasm of connective and soft tissue of pelvis; C79.51 Secondary malignant neoplasm of bone; R53.1 Weakness

== ENCOUNTER → 2018-07-29 | Outpatient (REF) | payer OTHER ==
[~2018-07-29] MED LIST changes: +CEFTRIAXONE500 MG IM; +LASIX 40 MG TAB40 MG PO; +LORCET HD 10-321 TAB PO; +RESTORIL15 MG PO; +SYNTHROID175 MCG PO; +VENTOLIN HFA IN
[2018-07-29 15:17] LABS: HEMATOCRIT 30.2 % (37.0-47.0); HEMOGLOBIN 9.4 g/dl (12.0-16.0); IMMATURE GRANULOCYTES 0.5 % (0.0-5.0); MEAN CELL VOLUME 89.6 fL CALC (80.0-100.0); MEAN CORPUSCULAR HGB 27.9 pG CALC (26.0-32.0); MEAN CORPUSCULAR HGB CONC 31.1 g/L CALC (32.0-36.0); NEUT# 8.34 thou/uL (2.00-7.15); RED BLOOD COUNT 3.37 mill/uL (4.20-5.60); RED CELL DISTRI WIDTH 16.3 % (11.5-15.5)
[2018-07-29 15:24] LABS: ALBUMIN 2.6 g/dL (3.2-5.0); BILIRUBIN, TOTAL 0.2 mg/dL (0.0-1.4); CREATININE 2.4 mg/dL (0.5-1.0); POTASSIUM 4.3 mmol/l (3.5-5.1); TOTAL PROTEIN 5.1 g/dL (6.3-8.2)
== END | disposition home or self-care (01) | DRG 543 ==
LOC: LABSPEC-NH 14:55
PROVIDERS: ATTEND Internal Medicine Geriatric Medicine
DX: C49.22 Malignant neoplasm of connective and soft tissue of left lower limb, including hip (principal); K92.2 Gastrointestinal hemorrhage, unspecified; J44.9 Chronic obstructive pulmonary disease, unspecified; I25.10 Atherosclerotic heart disease of native coronary artery without angina pectoris; I10 Essential (primary) hypertension